=== PATIENT | male | born 1975 | race Caucasian/White ===

== ENCOUNTER 2021-05-26 18:20 | Emergency (ER) | payer SELFPAY ==
[~2021-05-26] VITALS: Ht 180.3 cm; Wt 86.2 kg
[~2021-05-26 18:20] MED LIST: LOSA50TA57 PO; METO200T12 PO
--- NOTE | 2021-05-26 18:20 | NUR ---
Patient BIBA BLS, transferred to bed 8. RN evaluating the patient at bedside.
[2021-05-26 18:31] VITALS: BP 184/108
--- NOTE | 2021-05-26 18:45 | NUR ---
Dr. Moscoso is evaluating patient at bedside.
[2021-05-26] MEDS ORDERED: ONDANSETRON 4 MG/2 ML VIAL IVP ONE (19:00)
[2021-05-26] MEDS ORDERED: NACL 0.9% 1,000 ML IV ONE (19:00)
[2021-05-26] MEDS ORDERED: DICYCLOMINE HCL LIQUID 20 MG, ALUMINUM HYD/MAG/SIMETHICONE 30 ML, LIDOCAINE VISCOUS 2% ... PO ONE ×3 (19:00)
--- NOTE | 2021-05-26 19:00 | NUR ---
46 y/o M BIB self from home with c/c abdominal pain. Patient A&Ox4, states epigastric pain pain; /, deep/gnawing/intermittent radiating to low back. States associated nausea, diarrhea (watery). Denies fever/chills, vomiting, chest pain, dizziness. Patient denies any medications. Bed locked in lowest position, side rails x 1, call light in reach. PMH: Pancreatitis, anxiety, liver failure, mensentary thrmbosis, cirrhosis, hepatitis Meds: Xanax, adderall NKA Sx: Denies
--- NOTE | 2021-05-26 19:02 | NUR ---
Lab at bedside.
[2021-05-26 19:15] LABS: BASOPHILS % (AUTO) 0.3 % (0.0-2.0); EOSINOPHILS # (AUTO) 0.1 K/uL (0-0.4); EOSINOPHILS % (AUTO) 0.8 % (0.0-4.0); HEMATOCRIT 42.8 % (36-52); HEMOGLOBIN 14.5 g/dL (12.0-18.0); LYMPHOCYTES # (AUTO) 1.4 K/uL (2.0-11.5); LYMPHOCYTES % (AUTO) 15.8 % (20.5-51.1); MEAN CORPUSCULAR HEMOGLOBIN 30 pg (27-31); MEAN CORPUSCULAR HGB CONC 34 g/dL (33-37); MEAN CORPUSCULAR VOLUME 87.1 fL (80-94); MONOCYTES # (AUTO) 0.7 K/uL (0.8-1.0); MONOCYTES % (AUTO) 7.5 % (1.7-9.3); NEUTROPHILS # (AUTO) 6.8 K/uL (1.8-7.7); NEUTROPHILS % (AUTO) 75.6 % (42.2-75.2); PLATELET COUNT (AUTO) 145 K/uL (140-450); RED BLOOD CELL COUNT(AUTO) 4.92 MIL/uL (4.20-6.10); RED CELL DISTRIBUTION WIDTH 14.8 % (11.6-13.7)
--- NOTE | 2021-05-26 19:15 | NUR ---
Report and transfer of care endorsed to TERESA Stanley.
[2021-05-26] MEDS ORDERED: ALUMINUM HYD/MAG/SIMETHICONE 30 ML UDC ONE (19:22)
[2021-05-26] MEDS ORDERED: DICYCLOMINE HCL LIQUID 10 MG/5 ML UDC ONE (19:22)
[2021-05-26] MEDS ORDERED: LIDOCAINE VISCOUS 2% 20 ML UDC ONE (19:22)
[2021-05-26 19:33] LABS: ALBUMIN 3.8 g/dL (3.4-5.0); ANION GAP 12.5 (8-16); CARBON DIOXIDE 26.1 mmol/L (21-32); CREATININE 0.9 mg/dL (0.6-1.3); POTASSIUM 3.6 mmol/L (3.5-5.1); TOTAL BILIRUBIN 0.5 mg/dL (0.0-1.0)
[2021-05-26] MEDS ORDERED: FAMO-90 PO (20:42)
[2021-05-26] MEDS ORDERED: ONDA-24 SL (20:42)
[2021-05-26 20:50] VITALS: BP 156/98
--- NOTE | 2021-05-26 20:50 | NUR ---
Patient discharged with v/s stable. Written and verbal after care instructions given and explained. Patient alert, oriented and verbalized understanding of instructions. Ambulatory with steady gait. All questions addressed prior to discharge. ID band removed. Patient advised to follow up with PMD. Rx of PEPCID AND ZOFRAN ODT given. Patient educated on indication of medication including possible reaction and side effects. Opportunity to ask questions provided and answered.
== END 2021-05-26 20:50 | disposition home or self-care (01) ==
LOC: MED 18:20
DX: K86.1 Other chronic pancreatitis (principal); I10 Essential (primary) hypertension; F41.9 Anxiety disorder, unspecified; Z79.899 Other long term (current) drug therapy; Z88.0 Allergy status to penicillin
CPT/HCPCS: 36415; 80053; 83690; 85025; 96361; 96374; 99283; J2405; J7030